=== PATIENT | female | born 1990 | race Caucasian/White ===

== ENCOUNTER 2020-05-17 11:18 | Emergency (ER) | payer MEDICAID ==
[~2020-05-17] VITALS: Ht 170.2 cm; Wt 51.7 kg
[2020-05-17 11:37] VITALS: BP 113/87
--- NOTE | 2020-05-17 12:43 | NUR ---
Patient discharged to home in stable condition. Written and verbal after care instructions given. Patient verbalizes understanding of instruction.
== END 2020-05-17 12:47 | disposition home or self-care (01) ==
LOC: ER 11:18
DX: S70.362A Insect bite (nonvenomous), left thigh, initial encounter (principal); L03.116 Cellulitis of left lower limb; W57.XXXA Bitten or stung by nonvenomous insect and other nonvenomous arthropods, initial encounter; Y93.89 Activity, other specified; Y92.89 Other specified places as the place of occurrence of the external cause; Y99.8 Other external cause status

== ENCOUNTER 2020-05-23 12:51 | Emergency (ER) | payer MEDICAID ==
[~2020-05-23] VITALS: Ht 170.2 cm; Wt 56.2 kg
[2020-05-23 13:07] VITALS: BP 114/86
== END 2020-05-23 13:34 | disposition home or self-care (01) ==
LOC: ER 12:54
DX: S70.362A Insect bite (nonvenomous), left thigh, initial encounter (principal); W57.XXXA Bitten or stung by nonvenomous insect and other nonvenomous arthropods, initial encounter; Y93.89 Activity, other specified; Y92.89 Other specified places as the place of occurrence of the external cause; Y99.8 Other external cause status
CPT/HCPCS: 99283; A6403; A6407

== ENCOUNTER 2020-05-26 09:58 | Emergency (ER) | payer MEDICAID ==
[~2020-05-26] VITALS: Ht 172.7 cm; Wt 58.1 kg
[2020-05-26 10:13] VITALS: BP 132/82
--- NOTE | 2020-05-26 10:27 | NUR ---
Patient discharged to home in stable condition. Written and verbal after care instructions given. Patient verbalizes understanding of instruction.
== END 2020-05-26 10:28 | disposition home or self-care (01) ==
LOC: ER 10:09
DX: Z48.01 Encounter for change or removal of surgical wound dressing (principal)